=== PATIENT | female | born 1950 | race Caucasian/White ===

== ENCOUNTER 2020-06-10 22:45 | Emergency (ER) | payer MEDICARE ==
[2020-06-10] MEDS ORDERED: Sodium Chloride 0.9% 10 ML Syringe FLUSH PRN (23:04)
--- NOTE | 2020-06-10 23:13 | EDM.PDOCBH ---
<OfficerVicente - Last Filed: 06/10/20 23:08> ED HPI GENERAL MEDICAL PROBLEM - General Chief Complaint: Behavioral/Psych Stated Complaint: SUICIDE ATTEMPT Time Seen by Provider: 06/10/20 22:59 Source of Information: Reports: Patient, RN Notes Reviewed History Limitations: Reports: No Limitations - History of Present Illness INITIAL COMMENTS - FREE TEXT/NARRATIVE: 70-year-old female presents emergency department today via EMS services for an intentional overdose, she is a daily user of alcohol she does admit that she wants to harm herself she did try cutting her wrists and was unsuccessful therefore she took in combination with alcohol 20 0.5 mg tablets of clonazepam. She states she is very depressed and does not want to go on living - Related Data Allergies Allergy/AdvReac Type Severity Reaction Status Date / Time escitalopram [From Lexapro] Allergy Swelling Verified 06/10/20 23:37 Home Meds: Home Meds Citalopram Hydrobromide [Celexa] 20 mg PO BID 06/11/20 [History] Famotidine 40 mg PO BID 06/11/20 [History] Gabapentin [Neurontin] 400 mg PO QID 06/11/20 [History] Loratadine [Claritin] 10 mg PO DAILY 06/11/20 [History] Ondansetron [Zofran ODT] 4 mg PO Q6H PRN 06/11/20 [History] Primidone 100 mg PO DAILY 06/11/20 [History] Triamterene/Hydrochlorothiazid [Triamterene-HCTZ 37.5-25 MG] 1 each PO DAILY 06/11/20 [History] buPROPion HCL [Wellbutrin Xl] 150 mg PO DAILY 06/11/20 [History] clonazePAM [Clonazepam] 1 mg PO BEDTIME 06/11/20 [History] lisinopriL [Lisinopril] 10 mg PO DAILY 06/11/20 [History] oxyCODONE HCl/Acetaminophen [Oxycodone-Acetaminophen 5-325] 1 each PO TID 06/11/20 [History] Past Medical History Psychiatric History: Reports: Depression Social & Family History - Tobacco Use Smoking Status *Q: Never Smoker ED ROS GENERAL - Review of Systems Review Of Systems: See Below Constitutional: Reports: No Symptoms HEENT: Reports: No Symptoms Respiratory: Reports: No Symptoms Cardiovascular: Reports: No Symptoms GI/Abdominal: Reports: No Symptoms Psychiatric: Reports: Depression, Suicidal Ideation (With an attempt) ED EXAM, BEHAVIORAL HEALTH - Physical Exam Exam: See Below Exam Limited By: No Limitations General Appearance: Alert (GCS of 15 but somnolent) Eye Exam: Bilateral Eye: PERRL Respiratory/Chest: No Respiratory Distress, Lungs Clear, Normal Breath Sounds, No Accessory Muscle Use, Chest Non-Tender Cardiovascular: Regular Rate, Rhythm, No Murmur GI/Abdominal: Soft, Non-Tender Extremities: No Pedal Edema Psychiatric: Poor Eye Contact, Withdrawn, Suicidal Plan, Suicidal Thoughts. No: Tangential Thoughts, Auditory Hallucinations, Visual Hallucinations Departure - Departure Disposition: DC/Tfer to Psych Hosp/Unit [facility] Clinical Impression: Suicidal ideation, Hypokalemia - Discharge Information Referrals: PCP,None [Primary Care Provider] - Forms: ED Department Discharge Additional Instructions: Continue usual meds. Add KCL 10 meq orally as directed. F/U with your provider in about a month for recheck. Go directly to [facility] for admission. <Mario Alberto Lizarraga G - Last Filed: 06/11/20 15:00> ED HPI GENERAL MEDICAL PROBLEM Lower Back Pain Score (Numeric/FACES): 8 COURSE, BEHAVIORAL HEALTH COMP - Course Vital Signs: Last Vital Signs Temp 35.8 C L 06/11/20 13:12 Pulse 63 06/11/20 11:15 Resp 15 06/11/20 13:48 BP 119/83 06/11/20 13:48 Pulse Ox 95 06/11/20 13:12 Orders, Labs, Meds: Active Orders 24 hr Category Date Time Status Peripheral IV Care [RC] . DIRECTED Care 06/10/20 23:05 Active Lactated Ringers [Ringers, Lactated] 1,000 ml Med 06/10/20 23:15 Active IV ASDIRECTED Sodium Chloride 0.9% [Saline Flush] Med 06/10/20 23:04 Active 10 ml FLUSH ASDIRECTED PRN Peripheral IV Insertion Adult [OM.PC] Urgent Oth 06/10/20 23:04 Ordered Medication Orders Lactated Ringer's (Ringers, Lactated) 1,000 mls @ 125 mls/hr IV ASDIRECTED JASON Last Infusion: 06/11/20 03:53 Dose: 999 mls/hr Documented by: Admin: 06/11/20 00:03 Dose: 125 mls/hr Documented by: GI Sodium Chloride (Saline Flush) 10 ml FLUSH ASDIRECTED PRN PRN Reason: Keep Vein Open Last Admin: 06/11/20 00:06 Dose: 10 ml Documented by: GI Laboratory Tests 06/10/20 06/10/20 06/10/20 Range/Units 23:10 23:10 23:10 WBC 5.3 (4.5-11.0) K/uL RBC 4.00 (3.30-5.50) M/uL Hgb 13.1 (12.0-15.0) g/dL Hct 37.7 (36.0-48.0) % MCV 94 (80-98) fL MCH 33 H (27-31) pg MCHC 35 (32-36) % Plt Count 192 (150-400) K/uL Neut % (Auto) 45 (36-66) % Lymph % (Auto) 38 (24-44) % [place] % (Auto) 11 H (2-6) % Eos % (Auto) 6 H (2-4) % Baso % (Auto) 1 (0-1) % Sodium 130 L (140-148) mmol/L Potassium 3.2 L (3.6-5.2) mmol/L Chloride 93 L (100-108) mmol/L Carbon Dioxide 29 (21-32) mmol/L Anion Gap 11.2 (5.0-14.0) mmol/L BUN 9 (7-18) mg/dL Creatinine 0.9 (0.6-1.0) mg/dL Est Cr Clr Drug Dosing TNP Estimated GFR (MDRD) > 60 (>60) Glucose 89 (74-106) mg/dL Calcium 8.3 L (8.5-10.1) mg/dL Total Bilirubin 0.4 (0.2-1.0) mg/dL AST 33 (15-37) U/L ALT 40 (12-78) U/L Alkaline Phosphatase 89 (46-116) U/L Creatine Kinase (26-192) U/L Total Protein 6.5 (6.4-8.2) g/dL Albumin 3.8 (3.4-5.0) g/dL Globulin 2.7 (2.3-3.5) g/dL Albumin/Globulin Ratio 1.4 (1.2-2.2) TSH, Ultra Sensitive (0.358-3.740) uIU/mL Salicylates 1.5 L (2.0-20.0) mg/dL Urine Opiates Screen (NEGATIVE) Ur Oxycodone Screen (NEGATIVE) Urine Methadone Screen (NEGATIVE) Ur Propoxyphene Screen (NEGATIVE) Acetaminophen 0.8 L (10.0-30.0) ug/mL Ur Barbiturates Screen (NEGATIVE) Ur Tricyclics Screen (NEGATIVE) Ur Phencyclidine Scrn (NEGATIVE) Ur Amphetamine Screen (NEGATIVE) U Methamphetamines Scrn (NEGATIVE) Urine MDMA Screen (NEGATIVE) U Benzodiazepines Scrn (NEGATIVE) U Cocaine Metab Screen (NEGATIVE) U Marijuana (THC) Screen (NEGATIVE) Ethyl Alcohol mg/dL 06/10/20 06/10/20 06/11/20 Range/Units 23:10 23:10 00:05 WBC (4.5-11.0) K/uL RBC (3.30-5.50) M/uL Hgb (12.0-15.0) g/dL Hct (36.0-48.0) % MCV (80-98) fL MCH (27-31) pg MCHC (32-36) % Plt Count (150-400) K/uL Neut % (Auto) (36-66) % Lymph % (Auto) (24-44) % [place] % (Auto) (2-6) % Eos % (Auto) (2-4) % Baso % (Auto) (0-1) % Sodium (140-148) mmol/L Potassium (3.6-5.2) mmol/L Chloride (100-108) mmol/L Carbon Dioxide (21-32) mmol/L Anion Gap (5.0-14.0) mmol/L BUN (7-18) mg/dL Creatinine (0.6-1.0) mg/dL Est Cr Clr Drug Dosing Estimated GFR (MDRD) (>60) Glucose (74-106) mg/dL Calcium (8.5-10.1) mg/dL Total Bilirubin (0.2-1.0) mg/dL AST (15-37) U/L ALT (12-78) U/L Alkaline Phosphatase (46-116) U/L Creatine Kinase 237 H (26-192) U/L Total Protein (6.4-8.2) g/dL Albumin (3.4-5.0) g/dL Globulin (2.3-3.5) g/dL Albumin/Globulin Ratio (1.2-2.2) TSH, Ultra Sensitive 2.113 (0.358-3.740) uIU/mL Salicylates (2.0-20.0) mg/dL Urine Opiates Screen (NEGATIVE) Ur Oxycodone Screen (NEGATIVE) Urine Methadone Screen (NEGATIVE) Ur Propoxyphene Screen (NEGATIVE) Acetaminophen (10.0-30.0) ug/mL Ur Barbiturates Screen (NEGATIVE) Ur Tricyclics Screen (NEGATIVE) Ur Phencyclidine Scrn (NEGATIVE) Ur Amphetamine Screen (NEGATIVE) U Methamphetamines Scrn (NEGATIVE) Urine MDMA Screen (NEGATIVE) U Benzodiazepines Scrn (NEGATIVE) U Cocaine Metab Screen (NEGATIVE) U Marijuana (THC) Screen (NEGATIVE) Ethyl Alcohol 110 mg/dL 06/11/20 Range/Units 03:17 WBC (4.5-11.0) K/uL RBC (3.30-5.50) M/uL Hgb (12.0-15.0) g/dL Hct (36.0-48.0) % MCV (80-98) fL MCH (27-31) pg MCHC (32-36) % Plt Count (150-400) K/uL Neut % (Auto) (36-66) % Lymph % (Auto) (24-44) % [place] % (Auto) (2-6) % Eos % (Auto) (2-4) % Baso % (Auto) (0-1) % Sodium (140-148) mmol/L Potassium (3.6-5.2) mmol/L Chloride (100-108) mmol/L Carbon Dioxide (21-32) mmol/L Anion Gap (5.0-14.0) mmol/L BUN (7-18) mg/dL Creatinine (0.6-1.0) mg/dL Est Cr Clr Drug Dosing Estimated GFR (MDRD) (>60) Glucose (74-106) mg/dL Calcium (8.5-10.1) mg/dL Total Bilirubin (0.2-1.0) mg/dL AST (15-37) U/L ALT (12-78) U/L Alkaline Phosphatase (46-116) U/L Creatine Kinase (26-192) U/L Total Protein (6.4-8.2) g/dL Albumin (3.4-5.0) g/dL Globulin (2.3-3.5) g/dL Albumin/Globulin Ratio (1.2-2.2) TSH, Ultra Sensitive (0.358-3.740) uIU/mL Salicylates (2.0-20.0) mg/dL Urine Opiates Screen Negative (NEGATIVE) Ur Oxycodone Screen Negative (NEGATIVE) Urine Methadone Screen Negative (NEGATIVE) Ur Propoxyphene Screen Negative (NEGATIVE) Acetaminophen (10.0-30.0) ug/mL Ur Barbiturates Screen Presumptive positive H (NEGATIVE) Ur Tricyclics Screen Negative (NEGATIVE) Ur Phencyclidine Scrn Negative (NEGATIVE) Ur Amphetamine Screen Negative (NEGATIVE) U Methamphetamines Scrn Negative (NEGATIVE) Urine MDMA Screen Negative (NEGATIVE) U Benzodiazepines Scrn Negative (NEGATIVE) U Cocaine Metab Screen Negative (NEGATIVE) U Marijuana (THC) Screen Negative (NEGATIVE) Ethyl Alcohol mg/dL Medications Generic Name Dose Route Start Last Admin Trade Name Freq PRN Reason Stop Dose Admin Lactated Ringer's 1,000 mls @ 125 mls/hr 06/10/20 23:15 06/11/20 03:53 Ringers, Lactated IV 999 mls/hr ASDIRECTED JASON Infusion Sodium Chloride 10 ml 06/10/20 23:04 06/11/20 00:06 Saline Flush FLUSH 10 ml ASDIRECTED PRN Administration Keep Vein Open Discontinued Medications Generic Name Dose Route Start Last Admin Trade Name Freq PRN Reason Stop Dose Admin Lactated Ringer's 1,000 mls @ 999 mls/hr 06/11/20 06:00 06/11/20 04:10 Ringers, Lactated IV 06/11/20 07:00 999 mls/hr BOLUS ONE Administration Potassium Chloride 30 meq 06/11/20 10:52 06/11/20 13:06 Potassium Chloride PO 06/11/20 10:53 30 meq ONETIME ONE Administration Departure - Departure Time of Disposition: 15:35 Condition: Fair - Discharge Information *PRESCRIPTION DRUG MONITORING PROGRAM REVIEWED*: No *COPY OF PRESCRIPTION DRUG MONITORING REPORT IN PATIENT JAKUB: No Sepsis Event Note (ED) - Focused Exam Vital Signs: Vital Signs Temp Pulse Resp BP Pulse Ox 06/11/20 13:48 15 119/83 06/11/20 13:12 35.8 C L 11 L 105/36 L 95 06/11/20 12:10 10 L 120/46 L 06/11/20 11:15 63 11 L 129/53 L 94 L 06/11/20 10:08 10 L 129/56 L 100 06/11/20 09:24 14 119/53 L 94 L 06/11/20 08:18 16 119/59 L 94 L 06/11/20 07:23 70 14 95/45 L 94 L 06/11/20 07:00 57 L 14 117/46 L 89 L 06/11/20 05:55 60 17 129/58 L 06/11/20 05:25 55 L 13 91/40 L 06/11/20 05:15 56 L 13 87/37 L 96 06/11/20 05:05 54 L 13 85/37 L 96 06/11/20 04:54 54 L 85/36 L 06/11/20 04:44 54 L 78/32 L 06/11/20 04:40 54 L 13 79/37 L 98 06/11/20 04:31 55 L 66/33 L 06/11/20 04:08 53 L 72/36 L 06/11/20 03:47 57 L 78/33 L 06/11/20 03:17 63 108/39 L
[2020-06-10] MEDS ORDERED: Lactated Ringers 1,000 ML IV SCH (23:15)
[2020-06-10 23:51] LABS: ACETAMINOPHEN 0.8 ug/mL (10.0-30.0)
[2020-06-11] MEDS ORDERED: Lactated Ringers 1,000 ML IV ONE (06:00)
[2020-06-11] MEDS ORDERED: Potassium Chloride 10 MEQ Cap.ER PO ONE (10:52)
== END 2020-06-11 16:56 ==
LOC: JP.ED 22:45
DX: R45.851 Suicidal ideations (principal); E87.6 Hypokalemia; F32.9 Major depressive disorder, single episode, unspecified; Z88.8 Allergy status to other drugs, medicaments and biological substances; Z79.899 Other long term (current) drug therapy
CPT/HCPCS: 36415; 80053; 80305; 80307; 82550; 84443; 85025; 99285; A9270; J7120